=== PATIENT | male | born 1950 | race American Indian/Alaskan Native ===

== ENCOUNTER 2017-04-01 01:56 | Emergency (ER) | payer OTHER ==
[2017-04-01 02:45] VITALS: BP 164/85
--- NOTE | 2017-04-01 04:17 | Emergency Department Report ---
ED Eye Problem HPI - General Chief complaint: Eye Problems Stated complaint: EYE PAIN Source: patient Mode of arrival: Ambulatory Limitations: No Limitations - History of Present Illness Initial comments: 66-year-old -[place] male comes in complaint of right eye with stye 2 days has started draining tonight. Patient reports that the pain has improved since the stye has burst. He denies any fever or chills. He has a past medical history of a heart attack with stents placement and appendectomy bilateral knee surgery. He is currently on medications for his hypertension cholesterol but is not sure the name. MD chief complaint: eye pain, eye redness -: days(s) (2) Onset Description: gradual Location: right eye If Injury: none Eye Symptoms: pain, discharge Severity: mild Severity scale (0 -10): 3 If Pain, Quality: aching Consistency: now resolved Associated Symptoms: none Treatments Prior to Arrival: other (warm compresses) - Related Data Home Medications Medication Instructions Recorded Confirmed Last Taken Aspirin BABY CHEW TAB 1 tab PO DAILY 04/01/17 04/01/17 Unknown Clopidogrel Bisulfate [Plavix] 1 tab PO DAILY 04/01/17 04/01/17 Unknown Previous Rx's Medication Instructions Recorded Last Taken Type Amoxicillin [Trimox CAP] 500 mg PO Q8H #21 capsule 04/01/17 Unknown Rx Ofloxacin [Ocuflox 0.3%] 1 - 2 drop OP QID #1 drops 04/01/17 Unknown Rx Allergies Allergy/AdvReac Type Severity Reaction Status Date / Time No Known Allergies Allergy Unverified 04/01/17 03:18 ED Review of Systems ROS: Stated complaint: EYE PAIN Other details as noted in HPI Constitutional: no symptoms reported Eyes: eye pain, eye discharge ENT: denies: ear pain, throat pain Respiratory: denies: cough, shortness of breath, wheezing Cardiovascular: denies: chest pain, palpitations Endocrine: no symptoms reported Gastrointestinal: denies: abdominal pain, nausea, diarrhea Genitourinary: denies: urgency, dysuria Musculoskeletal: denies: back pain, joint swelling, arthralgia Skin: denies: rash, lesions Neurological: denies: headache, weakness, paresthesias Psychiatric: denies: anxiety, depression ED Past Medical Hx - Past Medical History Hx Hypertension: Yes Hx Heart Attack/AMI: Yes (Stents) Additional medical history: Obesity - Surgical History Hx Appendectomy: Yes Additional Surgical History: Bilateral knee surgery. - Social History Smoking Status: Never Smoker Substance Use Type: None - Medications Home Medications: Home Medications Medication Instructions Recorded Confirmed Last Taken Type Amoxicillin [Trimox CAP] 500 mg PO Q8H #21 capsule 04/01/17 Unknown Rx Aspirin BABY CHEW TAB 1 tab PO DAILY 04/01/17 04/01/17 Unknown History Clopidogrel Bisulfate [Plavix] 1 tab PO DAILY 04/01/17 04/01/17 Unknown History Ofloxacin [Ocuflox 0.3%] 1 - 2 drop OP QID #1 drops 04/01/17 Unknown Rx ED Physical Exam - General Limitations: No Limitations General appearance: alert, in no apparent distress - Head Head exam: Present: atraumatic, normocephalic - Eye Eye exam: Present: EOMI, other (edema to the right eye up related with some purulent serosanguineous discharge mouth tenderness to palpate) - ENT ENT exam: Present: mucous membranes moist ED Course Vital Signs 04/01/17 02:42 Temperature 98.8 F Pulse Rate 90 Respiratory 18 Rate Blood Pressure 164/85 O2 Sat by Pulse 97 Oximetry ED Medical Decision Making - Medical Decision Making Patient has been evaluated by this provider in fast track. I discussed patient that I will place him on antibiotics orally as well as in his eye for an eye infection. Discussed with patient to continue with the warm compresses and follow up with his primary care provider in 3-5 days. Patient verbalized understanding. Critical care attestation.: If time is entered above; I have spent that time in minutes in the direct care of this critically ill patient, excluding procedure time. ED Disposition Clinical Impression: Audra Qualifiers: Laterality: right Eyelid: upper Qualified Code(s): H00.011 - Hordeolum externum right upper eyelid Disposition: DC-01 TO HOME OR SELFCARE Is pt being admited?: No Does the pt Need Aspirin: No Condition: Stable Instructions: Audra (ED) Additional Instructions: Please take antibiotics as prescribed. Please continue with warm compresses to the right eye. Follow up with her primary care provider in 3-5 days. Prescriptions: Amoxicillin [Trimox CAP] 500 mg PO Q8H #21 capsule Ofloxacin [Ocuflox 0.3%] 1 - 2 drop OP QID #1 drops Referrals: PRIMARY CARE, [Primary Care Provider] - 3-5 Days
== END 2017-04-01 05:03 | disposition home or self-care (01) ==
LOC: ED 01:56
DX: H00.011 Hordeolum externum right upper eyelid (principal); I10 Essential (primary) hypertension
CPT/HCPCS: 99282